=== PATIENT | female | born 1985 | race Caucasian/White ===

== ENCOUNTER 2024-02-24 14:51 | Emergency (ER) | payer OTHER, SELFPAY ==
[2024-02-24] MEDS ORDERED: Ibuprofen 800 MG TAB ONE (15:11)
== END 2024-02-24 16:13 | disposition home or self-care (01) ==
LOC: NAV ERS 14:51
DX: S61.411A Laceration without foreign body of right hand, initial encounter (principal); S63.501A Unspecified sprain of right wrist, initial encounter; W01.0XXA Fall on same level from slipping, tripping and stumbling without subsequent striking against object, initial encounter
CPT/HCPCS: 12001; 99283